=== PATIENT | female | born 1960 | race Caucasian/White ===

== ENCOUNTER 2021-07-04 17:34 | Emergency (ER) | payer MEDICAID ==
--- NOTE | 2021-07-04 18:23 | EDM.PDOC ---
ED HPI GENERAL MEDICAL PROBLEM - General Chief Complaint: Lower Extremity Injury/Pain Stated Complaint: poss blood clot Time Seen by Provider: 07/04/21 18:00 Source of Information: Reports: Patient History Limitations: Reports: No Limitations - History of Present Illness INITIAL COMMENTS - FREE TEXT/NARRATIVE: 61-year-old female presents to the ED complaining of right leg pain just inferior to the knee on the anterior surface. Pain has been gradual onset over the last 1.5 months. Patient states that she is always in a considerable amount of pain, patient states she was a 10/10 on the pain scale multiple times today. Pain is increases with movement and with palpation. She describes the pain as sharp. Nothing really helps the pain. Pertinent medical history: Patient has a leg brace below the knee, history of osteonecrosis of the distal tibia. Positive for: Minor edema in the area of the pain, bursa superficial vein. Negative for chest pain, shortness of breath, cough, nausea vomiting, diarrhea constipation, or recent trauma. Right Lower Leg Pain Score (Numeric/FACES): 10 - Related Data Allergies Allergy/AdvReac Type Severity Reaction Status Date / Time amitriptyline Allergy Hives Verified 07/04/21 17:57 propoxyphene [From Darvon] Allergy Lethargy Verified 07/04/21 17:57 Home Meds: Home Meds Acyclovir 400 mg PO BID 07/04/21 [History] Cholecalciferol (Vitamin D3) [Vitamin D3] 1,000 unit PO DAILY 07/04/21 [History] Levothyroxine [Synthroid] 100 mcg PO ACBREAKFAST 07/04/21 [History] Loratadine [Claritin] 10 mg PO DAILY 07/04/21 [History] Pantoprazole [ProTONIX] 40 mg PO DAILY 07/04/21 [History] Salsalate 1,500 mg PO BID 07/04/21 [History] diphenhydrAMINE [Benadryl] 25 mg PO BEDTIME PRN 07/04/21 [History] methocarbamoL [Methocarbamol] 750 mg PO QID 07/04/21 [History] Social & Family History - Tobacco Use Tobacco Use Status *Q: Former Tobacco User Used Tobacco, but Quit: Yes Month/Year Tobacco Last Used: 07/2019 Second Hand Smoke Exposure: No - Caffeine Use Caffeine Use: Reports: None - Recreational Drug Use Recreational Drug Use: No Drug Use in Last 12 Months: No Review of Systems - Review of Systems Review Of Systems: Comprehensive ROS is negative, except as noted in HPI. ED EXAM, GENERAL - Physical Exam Exam: See Below Free Text/Narrative:: Focused exam primarily restricted to the right leg. Patient has multiple surgical scars from previous medical work. Including multiple pin duarte, and incisions. Patient wears a brace that is circumferential above the calf with 2 aluminum bars running down the medial and lateral sides of the ankle. There is a silver dollar sized ruptured venous contusion on the proximal lateral calf. There is minor edema noted anterior to the contusion. No obvious deformity. Same locations are both tender to palpation. Patient has CMS below site of her pain. With good capillary refill. Exam Limited By: Physical Impairment (Wheelchair) General Appearance: Alert, WD/WN, No Apparent Distress Ears: Hearing Grossly Normal Throat/Mouth: Normal Voice, No Airway Compromise Head: Atraumatic, Normocephalic Respiratory/Chest: No Respiratory Distress, Lungs Clear, Normal Breath Sounds, No Accessory Muscle Use, Chest Non-Tender Cardiovascular: Normal Peripheral Pulses, Regular Rate, Rhythm, No Gallop, No JVD, No Murmur, No Rub GI/Abdominal: Soft, Non-Tender, No Distention, No Mass Extremities: Other (Minor edema proximal tibia just superior to where the brace sits on the leg. Superficial in nature. Contusion noted in the same location. Legs are symmetrical in size.) Neurological: Alert, Normal Cognition Psychiatric: Normal Affect, Normal Mood Skin Exam: Warm, Dry, Intact, Normal Color, No Rash Course - Vital Signs Last Recorded V/S: Last Vital Signs Temp 98.7 F 07/04/21 17:45 Pulse 80 07/04/21 17:45 Resp 16 07/04/21 17:45 BP 155/86 H 07/04/21 17:45 Pulse Ox 97 07/04/21 17:45 - Orders/Labs/Meds Orders: Active Orders 24 hr Category Date Time Status Knee 3V Rt [CR] Stat Exams 07/04/21 18:08 Ordered D-DIMER QUANTITATIVE [COAG] Stat Lab 07/04/21 18:08 Ordered Departure - Departure Time of Disposition: 19:40 Disposition: Home, Self-Care 01 Condition: Good Clinical Impression: Contusion of leg, right - Discharge Information *PRESCRIPTION DRUG MONITORING PROGRAM REVIEWED*: No *COPY OF PRESCRIPTION DRUG MONITORING REPORT IN PATIENT LINDSEY: No Sepsis Event Note (ED) - Evaluation Sepsis Screening Result: No Definite Risk - Focused Exam Vital Signs: Vital Signs Temp Pulse Resp BP Pulse Ox 07/04/21 17:45 98.7 F 80 16 155/86 H 97 - My Orders Last 24 Hours: My Active Orders 07/04/21 18:08 Knee 3V Rt [CR] Stat D-DIMER QUANTITATIVE [COAG] Stat - Assessment/Plan Last 24 Hours: My Active Orders 07/04/21 18:08 Knee 3V Rt [CR] Stat D-DIMER QUANTITATIVE [COAG] Stat 61-year-old female presents to the ED complaining of right lower leg pain. Patient came in because she was concerned of the possibility of having a blood clot spoke with the triage nurse at [facility] who said that she may have a blood clot that could travel to her heart. Patient would not go to [place] because she was told that the ER was full of Covid patients. Patient was advised to come to [facility]. 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 Patient was still concerned regarding the possibility of a blood clot, so a D-dimer was performed. The D- dimer was positive, x-rays were negative for any bony lesion. At that point shared decision-making was implemented between the patient myself and Dr. Cano that this was most likely a contusion or superficial phlebitis, that treatment for that require rest, elevation, heat. Patient did not want to take aspirin for the discomfort. Patient still concerned about a blood clot, and did not want to travel to [place]. Understanding the risks as explained by Dr. Cano and myself patient decided to be seen by [facility]y during business hours for an ultrasound as a follow-up for her positive D-dimer. All patients questions were explained to their satisfaction. Patient understands risks associated with her treatment plan. Patient released in stable condition. Plan: ABC, history, exam, D-dimer, x-ray, patient education see above, patient discharged in stable condition, to follow-up with primary care provider or ultrasound at [place] tomorrow.
--- NOTE | 2021-07-05 09:17 | CR ---
DATE OF SERVICE: 07/04/21 CLINICAL DATA: pain RIGHT KNEE: No priors. There are mild osteoarthritic changes. There is a moderate size joint effusion. No acute abnormalities. No lytic or blastic bone lesions. [id number] [facility]
== END 2021-07-04 19:50 | disposition home or self-care (01) ==
LOC: LB.ED 17:34
DX: S80.11XA Contusion of right lower leg, initial encounter (principal); Z88.8 Allergy status to other drugs, medicaments and biological substances; Z87.891 Personal history of nicotine dependence; Z79.899 Other long term (current) drug therapy; X50.1XXA Overexertion from prolonged static or awkward postures, initial encounter
CPT/HCPCS: 36415; 73562-RT; 85379; 99283-25